=== PATIENT | male | born 1990 | race Caucasian/White ===

== ENCOUNTER 2022-12-24 00:33 | Emergency (ER) | payer SELFPAY | END 2022-12-24 01:24 | disposition home or self-care (01) | LOC: JP.ED 00:33 | DX: L03.116 Cellulitis of left lower limb (principal); L02.416 Cutaneous abscess of left lower limb; F17.210 Nicotine dependence, cigarettes, uncomplicated; J45.909 Unspecified asthma, uncomplicated; Z86.16 Personal history of COVID-19 | CPT/HCPCS: 87070; 87205; 99283 ==

== ENCOUNTER 2024-05-17 14:57 | Emergency (ER) | payer MEDICAID ==
[2024-05-17] MEDS: Diazepam 5 MG Tab PO ONE (16:09)
[2024-05-17] MEDS: Ketorolac 30 MG/ML SDV IVPUSH ONE (16:09)
== END 2024-05-17 17:56 | disposition home or self-care (01) ==
LOC: JP.ED 14:57
DX: M54.16 Radiculopathy, lumbar region (principal); J45.909 Unspecified asthma, uncomplicated; F17.210 Nicotine dependence, cigarettes, uncomplicated; Z86.16 Personal history of COVID-19
CPT/HCPCS: 72100; 96374; 99283; A9270; J1885; 99284